=== PATIENT | male | born 1985 | race Caucasian/White ===

== ENCOUNTER 2017-03-03 22:14 | Emergency (ER) | payer OTHER | END 2017-03-04 00:02 | disposition home or self-care (01) | LOC: FER 22:14 | DX: S52.514A Nondisplaced fracture of right radial styloid process, initial encounter for closed fracture (principal); Z98.890 Other specified postprocedural states; W23.0XXA Caught, crushed, jammed, or pinched between moving objects, initial encounter | CPT/HCPCS: 73110 ==